=== PATIENT | female | born 1955 | race American Indian/Alaskan Native ===

== ENCOUNTER 2017-10-14 22:38 | Emergency (ER) | payer OTHER ==
[2017-10-14 23:35] LABS: Basophils % (Auto) 0.3 % (0.0-1.8); Hemoglobin 13.4 gm/dl (10.1-14.3); Lymphocytes # (Auto) 1.3 K/mm3 (1.2-5.4); Lymphocytes % (Auto) 8.5 % (13.4-35.0); Mean Corpuscular HGB Conc 34 % (30-34); Mean Corpuscular Hemoglobin 30 pg (28-32); Mean Corpuscular Volume 88 fl (79-97); Monocytes # (Auto) 0.8 K/mm3 (0.0-0.8); Monocytes % (Auto) 5.4 % (0.0-7.3); Platelet Count 295 K/mm3 (140-440); Red Blood Count 4.54 M/mm3 (3.65-5.03); Red Cell Distribution Width 13.9 % (13.2-15.2)
[2017-10-15 00:11] LABS: Alanine Aminotransferase 15 units/L (7-56); Albumin 3.6 g/dL (3.9-5); BUN/Creatinine Ratio 9; Blood Urea Nitrogen 10 mg/dL (7-17); Hemolysis Index 15
[2017-10-15 02:55] LABS: Bacteria,Urine 1+ /HPF (Negative); Bilirubin,Urine NEG (Negative); Blood,Urine NEG (Negative); Color,Urine Yellow (Yellow); Mucus,Urine FEW /HPF; Protein,Urine <15 mg/dL mg/dL (Negative); Urobilinogen,Urine < 2.0 mg/dL (<2.0)
[2017-10-15] MEDS ORDERED: SUBLIMAZE IV ONE (03:41)
--- NOTE | 2017-10-15 04:08 | XRay Report ---
FINAL REPORT EXAM: XR CHEST 1V AP HISTORY: chest pain TECHNIQUE: A portable semi-erect view the chest was obtained. FINDINGS: The heart size and mediastinum appear normal. The lungs are clear. The lungs are not congested. Pleural fluid is not seen. There are EKG leads overlying the chest wall. The bones and soft tissues reveal generalized obesity. IMPRESSION: No active chest disease.
--- NOTE | 2017-10-15 06:18 | Emergency Department Report ---
- General Chief complaint: Weakness Stated complaint: PAIN IN BACK AND BILATERAL LEGS Time Seen by Provider: 10/15/17 06:14 Source: patient Mode of arrival: Ambulatory Limitations: No Limitations - History of Present Illness Initial comments: Patient complains of generalized weakness, and aching generally, predominantly in arms, legs, and with headache, was noted to have a fever on arrival. Past medical history significant primarily for hypertension. She is hypertensive, but has no history of diabetes, although she is morbidly obese. Severity scale (0 -10): 0 - Related Data Previous Rx's Medication Instructions Recorded Last Taken Type HYDROcodone/ACETAMINOPHEN [[place] 1 each PO Q4-6H #15 tablet 10/15/17 Unknown Rx 5-325 Tablet] Levofloxacin [Levaquin TAB] 500 mg PO QDAY #9 tablet 10/15/17 Unknown Rx Ondansetron [Zofran ODT TAB] 8 mg PO Q8HR PRN #5 tab.rapdis 10/15/17 Unknown Rx Allergies Allergy/AdvReac Type Severity Reaction Status Date / Time ketoconazole AdvReac Unknown Verified 10/15/17 04:48 tetracycline AdvReac Unknown Verified 10/15/17 04:48 ED Review of Systems ROS: Stated complaint: PAIN IN BACK AND BILATERAL LEGS Other details as noted in HPI ED Past Medical Hx - Past Medical History Previous Medical History?: Yes Hx Hypertension: Yes - Surgical History Past Surgical History?: No - Social History Smoking Status: Never Smoker Substance Use Type: None - Medications Home Medications: Home Medications Medication Instructions Recorded Confirmed Last Taken Type HYDROcodone/ACETAMINOPHEN [[place] 1 each PO Q4-6H #15 tablet 10/15/17 Unknown Rx 5-325 Tablet] Levofloxacin [Levaquin TAB] 500 mg PO QDAY #9 tablet 10/15/17 Unknown Rx Ondansetron [Zofran ODT TAB] 8 mg PO Q8HR PRN #5 tab.rapdis 10/15/17 Unknown Rx ED Physical Exam - General Limitations: No Limitations General appearance: in no apparent distress, obese - Head Head exam: Present: atraumatic, normocephalic - Eye Eye exam: Present: normal appearance, PERRL - ENT ENT exam: Present: normal exam - Neck Neck exam: Present: normal inspection. Absent: tenderness - Respiratory Respiratory exam: Present: normal lung sounds bilaterally. Absent: wheezes, rhonchi - Cardiovascular Cardiovascular Exam: Present: tachycardia (103 on arrival, 92 on repeat examination, 102 on repeat examination) - GI/Abdominal GI/Abdominal exam: Present: soft. Absent: tenderness, guarding - Rectal Rectal exam: Present: deferred - Extremities Exam Extremities exam: Present: normal inspection. Absent: tenderness, joint swelling, calf tenderness - Back Exam Back exam: Present: normal inspection. Absent: tenderness, CVA tenderness (R), CVA tenderness (L) - Neurological Exam Neurological exam: Present: alert, CN II-XII intact. Absent: motor sensory deficit - Psychiatric Psychiatric exam: Present: normal affect - Skin Skin exam: Present: warm, dry. Absent: diaphoretic, petechiae, ecchymosis ED Course Vital Signs 10/14/17 10/15/17 10/15/17 22:51 03:32 04:41 Temperature 100 F H 97.8 F Pulse Rate 112 H 103 H Respiratory 16 31 H 26 H Rate Blood Pressure 150/90 Blood Pressure 146/89 [Right] O2 Sat by Pulse 97 98 96 Oximetry 10/15/17 10/15/17 08:19 10:00 Temperature 101.4 F H 100.6 F H Pulse Rate Respiratory Rate Blood Pressure Blood Pressure 152/87 [Right] O2 Sat by Pulse Oximetry - Reevaluation(s) Reevaluation #1: 10/15/17 10:20 Patient clinically stable, but repeat temperature was 101.4, patient medicated for fever, tolerated ceftriaxone, blood cultures and lactic acid were drawn, although blood cultures drawn after ceftriaxone administered, as fever recurred after initial plans for treatment of urinary tract infection. Reevaluation #2: 10/15/17 10:20 Patient remains clinically stable, lactic acid is stable although borderline at 2.0, the patient is tolerating fluids well, can be treated with oral levofloxacin, with close follow-up. She has ibuprofen she can take at home for fever, or can take Tylenol, and will be treated with daily levofloxacin, as well as medication for discomfort or nausea. 2-3 day follow-up with physician recommended. She is stable on repeat examination, but complains of persistent headache, which is bifrontal, does not radiate, and confirmed on local palpation in the bifrontal and temporal areas; she has no complaint of neck pain, and neck remained supple on examination. 10/15/17 10:43 Reevaluation #3: 10/15/17 13:09 Patient remains clinically stable, repeat lactate is decreased to 1.3, and patient is feeling better after treatment for headache, but patient remains febrile with temperature 100.6, and repeat shows mild persistent fever 99.5F. 10/15/17 13:12 ED Medical Decision Making - Lab Data Result diagrams: 10/14/17 23:01 10/14/17 23:01 - EKG Data -: EKG Interpreted by Me EKG shows normal: sinus rhythm, axis (normal QRS axis 24), QRS complexes ( normal QRS complexes without widening), ST-T waves (normal ST segments) Rate: tachycardia - Radiology Data Radiology results: report reviewed Chest x-ray shows no acute cardiopulmonary abnormality - Medical Decision Making Patient is clinically stable, although she is febrile, clear source is not evident, with negative x-ray, with mild elevation of white count, and borderline but stable lactic acid. She tolerates fluids, and is not allergic to levofloxacin, and will be treated as outpatient with close follow-up with physician. Initial dose of ceftriaxone given emergency Department, as well as first dose of oral levofloxacin. Repeat temperature at time of disposition 99.5 . Patient medicated for temperature, given hydrocodone for headache. Service criteria is negative, she is tolerating fluids and is stable for discharge. She will be discharged on same with early follow-up with her physician. - Differential Diagnosis pneumonia, sepsis, urinary tract infection, pyelonephritis Critical Care Time: No Critical care attestation.: If time is entered above; I have spent that time in minutes in the direct care of this critically ill patient, excluding procedure time. ED Disposition Clinical Impression: Urinary tract infection Qualifiers: Urinary tract infection type: site unspecified Fever Qualifiers: Encounter type: initial encounter Disposition: DC-01 TO HOME OR SELFCARE Is pt being admited?: No Does the pt Need Aspirin: No Condition: Stable Instructions: Urinary Tract Infection in Women (ED) Additional Instructions: Rest at home while feeling poorly, Be sure to check temperature rectally, and treat any fever with Tylenol or ibuprofen. We're prescribing hydrocodone for treatment of any persistent headache. Take Levaquin daily for urinary infection, beginning with next dose tomorrow morning. Take ondansetron if you have any nausea, and you can repeat this every 8 hours as needed for persistent nausea. Have recheck by your doctor on Wednesday or Wednesday, or return to the emergency department if you're feeling worse. Prescriptions: HYDROcodone/ACETAMINOPHEN [[place] 5-325 Tablet] 1 each PO Q4-6H #15 tablet Levofloxacin [Levaquin TAB] 500 mg PO QDAY #9 tablet Ondansetron [Zofran ODT TAB] 8 mg PO Q8HR PRN #5 tab.rapdis PRN Reason: Nausea Referrals: MARIO MAX MD [Primary Care Provider] - 3-5 Days Forms: Accompanied Note Time of Disposition: 13:18
[2017-10-15] MEDS ORDERED: ROCEPHIN IM ONE (07:27)
[2017-10-15] MEDS ORDERED: XYLOCAINE 1% MPF 5 mL INFILTRATI ONE (07:27)
[2017-10-15] MEDS ORDERED: ROCEPHIN/NS 1 GM/50 ML 1 GM/50 ML BAG IV ONE (07:28)
[2017-10-15] MEDS ORDERED: cefTRIAXone 1 GM in NACL 0.9% 20 ML IV ONE (07:45)
[2017-10-15 08:20] VITALS: BP 152/87
[2017-10-15] MEDS ORDERED: TYLENOL PO PRN (08:20)
[2017-10-15] MEDS ORDERED: TYLENOL ONE (08:22)
[2017-10-15] MEDS ORDERED: LEVAQUIN PO ONE (10:19)
[2017-10-15] MEDS ORDERED: NORCO 7.5/325 PO ONE (10:43)
== END 2017-10-15 13:53 | disposition home or self-care (01) ==
LOC: ED 22:38
DX: N39.0 Urinary tract infection, site not specified (principal); R50.9 Fever, unspecified; I10 Essential (primary) hypertension
CPT/HCPCS: 36415; 71045; 80053; 81001; 82140; 85025; 87040; 93005; 93010; 96372; 96374; 99284; J0696; J3010

== ENCOUNTER 2017-10-17 12:38 | Emergency (ER) | payer OTHER ==
[2017-10-17 13:13] LABS: Hematocrit 39.9 % (30.3-42.9); Hemoglobin 13.1 gm/dl (10.1-14.3); Mean Platelet Volume 7.5 fl (6-12); Red Blood Count 4.47 M/mm3 (3.65-5.03); Red Cell Distribution Width 14.2 % (13.2-15.2)
[2017-10-17 13:16] LABS: INR 0.97 (0.87-1.13)
--- NOTE | 2017-10-17 13:26 | Emergency Department Report ---
Chief Complaint: Extremity Injury, Lower Stated Complaint: LEG PAIN - HPI History of Present Illness: 62-year-old female past medical history right ankle surgery presents with complaint of one to 2 days of right ankle redness swelling and pain on skin. Skin is hot to touch without visible overlying redness near ankle and distal lui. She denies fevers or chills. Patient does state that she went on long distance car ride within the last 2 weeks which lasted for more than [address] Denies any personal history of PE or DVT. - ROS Review of Systems: 1 day of right lower extremity pain and swelling and redness overlying skin distal leg - Exam Vital Signs: Vital Signs 10/17/17 12:44 Temperature 98.8 F Pulse Rate 99 H Respiratory 18 Rate Blood Pressure 112/70 O2 Sat by Pulse 100 Oximetry Physical Exam: Visible erythema overlying skin right distal leg on the lateral aspect near malleolus and above it MSE screening note: Focused history and physical exam performed. Due to findings the following was ordered: Screening Assessment/Plan/Differential Dx: Right lower extremity cellulitis versus DVT 1- This initial assessment/diagnostic orders/clinical plan/ treatment(s) is/are subject to change based on pt's health status, clinical progression and re- assessment by fellow clinical providers in the ED. Further treatment and workup at subsequent clinical provers discretion. Patient/guardians urged not to elope from ED as their condition may be serious if not clinically assessed and managed. 2-labs, d-dimer is positive. I spoke with the avionics repair technician to obtain right lower extremity Doppler 3-x-ray right lower extremity ED Medical Decision Making - Lab Data Result diagrams: 10/17/17 12:53 ED Disposition for MSE Condition: Stable
[2017-10-17 13:52] LABS: BUN/Creatinine Ratio 14; Blood Urea Nitrogen 14 mg/dL (7-17); Calcium 9.1 mg/dL (8.4-10.2); Hemolysis Index 8
--- NOTE | 2017-10-17 14:03 | XRay Report ---
RIGHT ANKLE RADIOGRAPHS INDICATION: Right ankle pain and swelling. COMPARISON: 04/27/2016. FINDINGS: AP, lateral and oblique right ankle radiographs demonstrate stable intact articulation/mortise and distal fibular lateral cortical calcific thickening, possibly postinfectious or posttraumatic, amongst others. Extensive ankle soft tissue swelling noted, medial more than lateral, also possibly involving the imaged lower leg. Moderate to large dorsal and plantar calcaneal spurs. Dorsal midfoot spurring also noted. CONCLUSION: Extensive right ankle soft tissue swelling again noted with few other findings, as above. Please correlate. Thank you for the opportunity to participate in this patient's care.
[2017-10-17] MEDS ORDERED: TYLENOL PO ONE (17:11)
[2017-10-17] MEDS ORDERED: CLEOCIN PO ONE (17:11)
--- NOTE | 2017-10-17 17:14 | Emergency Department Report ---
- General Chief complaint: Extremity Injury, Lower Stated complaint: LEG PAIN Source: patient Mode of arrival: Ambulatory Limitations: No Limitations - History of Present Illness Initial comments: 62-year-old female past medical history peripheral vascular disease, osteoarthritis, hypertension, GERD, history of right distal ankle fracture with ORIF presents with complaint of 2 days of rash warm skin and somewhat painful skin right distal lower extremity. Patient denies any calf swelling or tenderness. Denies any direct trauma to the area. Patient is ambulatory. Denies fevers or chills. Awake alert and oriented 3. Visible erythematous region right lower lui region and lateral ankle region MD complaint: rash Onset/Timin -: days(s) Location: RLE Severity: moderate Severity scale (0 -10): 4 Quality: burning, aching Consistency: intermittent Worsens with: none Context: none Associated symptoms: denies other symptoms Treatments Prior to Arrival: none - Related Data Previous Rx's Medication Instructions Recorded Last Taken Type HYDROcodone/ACETAMINOPHEN [[place] 1 each PO Q4-6H #15 tablet 10/15/17 Unknown Rx 5-325 Tablet] Levofloxacin [Levaquin TAB] 500 mg PO QDAY #9 tablet 10/15/17 Unknown Rx Ondansetron [Zofran ODT TAB] 8 mg PO Q8HR PRN #5 tab.rapdis 10/15/17 Unknown Rx Acetaminophen [Tylenol Extra 500 mg PO Q8H PRN #25 tablet 10/17/17 Unknown Rx Strength] Clindamycin [Clindamycin CAP] 300 mg PO Q6H #28 capsule 10/17/17 Unknown Rx Allergies Allergy/AdvReac Type Severity Reaction Status Date / Time ketoconazole AdvReac Unknown Verified 10/15/17 04:48 tetracycline AdvReac Unknown Verified 10/15/17 04:48 Abscess Boil HPI - HPI Chief Complaint: Extremity Injury, Lower Stated Complaint: LEG PAIN Home Medications: Previous Rx's Medication Instructions Recorded Last Taken Type HYDROcodone/ACETAMINOPHEN [[place] 1 each PO Q4-6H #15 tablet 10/15/17 Unknown Rx 5-325 Tablet] Levofloxacin [Levaquin TAB] 500 mg PO QDAY #9 tablet 10/15/17 Unknown Rx Ondansetron [Zofran ODT TAB] 8 mg PO Q8HR PRN #5 tab.rapdis 10/15/17 Unknown Rx Acetaminophen [Tylenol Extra 500 mg PO Q8H PRN #25 tablet 10/17/17 Unknown Rx Strength] Clindamycin [Clindamycin CAP] 300 mg PO Q6H #28 capsule 10/17/17 Unknown Rx Allergies/Adverse Reactions: Allergies Allergy/AdvReac Type Severity Reaction Status Date / Time ketoconazole AdvReac Unknown Verified 10/15/17 04:48 tetracycline AdvReac Unknown Verified 10/15/17 04:48 ED Review of Systems ROS: Stated complaint: LEG PAIN Other details as noted in HPI Constitutional: denies: chills, fever Eyes: denies: eye pain, eye discharge, vision change ENT: denies: ear pain, throat pain Respiratory: denies: cough, shortness of breath, wheezing Cardiovascular: denies: chest pain, palpitations Endocrine: no symptoms reported Gastrointestinal: denies: abdominal pain, nausea, diarrhea Genitourinary: denies: urgency, dysuria, discharge Musculoskeletal: denies: back pain, joint swelling, arthralgia Skin: as per HPI, rash, change in color. denies: lesions Neurological: denies: headache, weakness, paresthesias Psychiatric: denies: anxiety, depression Hematological/Lymphatic: denies: easy bleeding, easy bruising ED Past Medical Hx - Past Medical History Hx Hypertension: Yes - Social History Smoking Status: Never Smoker Substance Use Type: None - Medications Home Medications: Home Medications Medication Instructions Recorded Confirmed Last Taken Type HYDROcodone/ACETAMINOPHEN [[place] 1 each PO Q4-6H #15 tablet 10/15/17 Unknown Rx 5-325 Tablet] Levofloxacin [Levaquin TAB] 500 mg PO QDAY #9 tablet 10/15/17 Unknown Rx Ondansetron [Zofran ODT TAB] 8 mg PO Q8HR PRN #5 tab.rapdis 10/15/17 Unknown Rx Acetaminophen [Tylenol Extra 500 mg PO Q8H PRN #25 tablet 10/17/17 Unknown Rx Strength] Clindamycin [Clindamycin CAP] 300 mg PO Q6H #28 capsule 10/17/17 Unknown Rx ED Physical Exam - General Limitations: No Limitations General appearance: alert, in no apparent distress - Head Head exam: Present: atraumatic, normocephalic - Eye Eye exam: Present: normal appearance - ENT ENT exam: Present: mucous membranes moist - Neck Neck exam: Present: normal inspection - Respiratory Respiratory exam: Present: normal lung sounds bilaterally. Absent: respiratory distress - Cardiovascular Cardiovascular Exam: Present: regular rate, normal rhythm. Absent: systolic murmur, diastolic murmur, rubs, gallop - GI/Abdominal GI/Abdominal exam: Present: soft, normal bowel sounds - Extremities Exam Extremities exam: Present: normal inspection - Expanded Lower Extremity Exam Right Upper Leg exam: Present: normal inspection, full ROM Knee exam: Present: normal inspection, full ROM Lower Leg exam: Present: full ROM, tenderness, erythema Ankle exam: Present: tenderness, erythema Foot/Toe exam: Present: normal inspection Neuro vascular tendon exam: Present: no vascular compromise (distal dorsalis pedis pulse strong to palpation) Gait: Positive: observed and normal - Back Exam Back exam: Present: normal inspection - Neurological Exam Neurological exam: Present: alert, oriented X3, CN II-XII intact, normal gait - Psychiatric Psychiatric exam: Present: normal affect, normal mood - Skin Skin exam: Present: warm, dry, intact, normal color. Absent: rash ED Course Vital Signs 10/17/17 12:44 Temperature 98.8 F Pulse Rate 99 H Respiratory 18 Rate Blood Pressure 112/70 O2 Sat by Pulse 100 Oximetry ED Medical Decision Making - Lab Data Result diagrams: 10/17/17 12:53 10/17/17 12:53 - Medical Decision Making A/P: Right lower extremity cellulitis 1-lower extremity Doppler shows no DVT 2-case discussed with attending. Will give patient trial of by mouth clindamycin. Borders of cellulitis marked 3-I advised patient to return to the ED for any development of fever chills inability to ambulate independently or rapid spread of cellulitis beyond marked borders. Patient stated she understood my instructions. 4-follow-up with primary care doctor 5- vital signs stable Critical care attestation.: If time is entered above; I have spent that time in minutes in the direct care of this critically ill patient, excluding procedure time. ED Disposition Clinical Impression: Cellulitis of right lower extremity Disposition: - TO HOME OR SELFCARE Is pt being admited?: No Does the pt Need Aspirin: No Condition: Stable Instructions: Cellulitis (ED) Additional Instructions: Please return to the ED for spread of redness beyond marked borders fevers or chills or inability to ambulate on your own Prescriptions: Acetaminophen [Tylenol Extra Strength] 500 mg PO Q8H PRN #25 tablet PRN Reason: Pain Clindamycin [Clindamycin CAP] 300 mg PO Q6H #28 capsule Referrals: [facility] [Provider Group] - 3-5 Days GERALD MAZARIEGOS MD [Staff Physician] - 3-5 Days Forms: Accompanied Note Time of Disposition: 17:13
[2017-10-17 17:38] VITALS: BP 161/102
--- NOTE | 2017-10-20 14:59 | Vascular Lab Report ---
Right Lower Extremity Venous Duplex Study: Reason for Exam: Pain and swelling of the right lower extremity. Comments on the Right: All veins visualized are freely compressible without evidence of internal echogenicity. Flow is spontaneous and phasic throughout. No evidence of acute or chronic thrombus is seen in any of the vessels visualized. Right inguinal adenopathy is noted. A soft tissue change in the right knee area is consistent with a Ya's cyst. There is veins are noted in the medial proximal calf. Comments on the Left: A limited duplex study was done of the proximal veins of the left lower extremity. All veins visualized are freely compressible without evidence of internal echogenicity. Flow is spontaneous and phasic throughout. No evidence of acute or chronic thrombus is seen in any of the vessels visualized. Impression: No evidence of acute or chronic deep venous thrombosis in the right lower extremity. Right inguinal adenopathy is noted. A soft tissue change in the right knee area is consistent with a Ya's cyst. Varicose veins are noted in the proximal right calf.
== END 2017-10-17 17:37 | disposition home or self-care (01) ==
LOC: ED 12:38
DX: L03.115 Cellulitis of right lower limb (principal); I10 Essential (primary) hypertension; Z88.1 Allergy status to other antibiotic agents; Z88.8 Allergy status to other drugs, medicaments and biological substances
CPT/HCPCS: 36415; 80048; 85027; 85379; 85610; 85730

== ENCOUNTER 2018-01-04 09:15 | Outpatient (CLI) | payer OTHER ==
--- NOTE | 2018-01-04 10:33 | Mammography Report ---
BILATERAL DIGITAL SCREENING MAMMOGRAM with CAD: 01/04/18 09:15:00 CLINICAL: Routine screening. COMPARISON:11/18/15 and 09/19/14 and 08/09/13 FINDINGS: The breasts are mostly fatty. 2 right focal asymmetries or new compared to prior mammograms and required additional imaging.No architectural distortion or suspicious calcifications.The left breast is negative. IMPRESSION: Right asymmetries requiring further workup. BI-RADS CATEGORY: 0 -- Additional Imaging Evaluation Required RECOMMENDATION: Recall for right mediolateral and spot magnification MLO and CC views and right breast ultrasound. ACR BI-RADS MAMMOGRAPHIC CODES: 0 = Needs additional imaging evaluation; 1 = Negative; 2 = Benign; 3 = Probably benign; 4 = Suspicious; 5 = Malignant; 6 = Known biopsy-proven malignancy COMMENT: 1. Dense breast tissue, i.e., adenosis, fibrocystic changes, etc., may obscure an underlying neoplasm. 2. Approximately 10% of cancers are not detected with mammography. 3. A negative mammography report should not delay biopsy if a clinically suspicious mass is present. COMMENT: Patient follow-up letters are generated via our [employer] application.
== END 2018-01-04 09:16 | disposition home or self-care (01) ==
LOC: MAMMO 09:15
PROVIDERS: ATTEND Internal Medicine
DX: Z12.31 Encounter for screening mammogram for malignant neoplasm of breast (principal)
CPT/HCPCS: 77067

== ENCOUNTER 2018-01-14 13:18 | Outpatient (CLI) | payer OTHER ==
--- NOTE | 2018-01-14 16:28 | Mammography Report ---
RIGHT DIGITAL DIAGNOSTIC MAMMOGRAM and RIGHT BREAST ULTRASOUND: 01/14/18 13:18:00 CLINICAL: Recalled for asymmetries. COMPARISON:01/04/18 screening FINDINGS: ML and spot magnification MLO and CC views were performed and demonstrate persistent low density circumscribed densities. Ultrasound of the retroareolar and outer right breast was performedand demonstrated no solid mass or shadowing. A retroareolar complex cyst at 12 o'clock measures 8 x 5 x 10 mm and correlates with the mammographic density. A cyst at 5:30 o'clock 3 cm from the nipple measures 6 mm and correlates with a benign calcified oil cysts on the mammogram. A cyst at 9 o'clock 5 cm from the nipple measures 6 x 2 x 4 mm and correlates with the more posterior mammographic density designated by arrows on the screening exam. A few benign right axillary tail benign lymph nodes. IMPRESSION: Benign cysts and lymph nodes. BI-RADS CATEGORY: 2 - - Benign RECOMMENDATION: Routine mammographic screening in one year. ACR BI-RADS MAMMOGRAPHIC CODES: 0 = Needs additional imaging evaluation; 1 = Negative; 2 = Benign; 3 = Probably benign; 4 = Suspicious; 5 = Malignant; 6 = Known biopsy-proven malignancy COMMENT: 1. Dense breast tissue, i.e., adenosis, fibrocystic changes, etc., may obscure an underlying neoplasm. 2. Approximately 10% of cancers are not detected with mammography. 3. A negative mammography report should not delay biopsy if a clinically suspicious mass is present. COMMENT: Patient follow-up letters are generated via our [facility] application.
== END 2018-01-14 13:19 | disposition home or self-care (01) ==
LOC: MAMMO 13:18
PROVIDERS: ATTEND Internal Medicine
DX: N60.01 Solitary cyst of right breast (principal); I10 Essential (primary) hypertension; Z88.8 Allergy status to other drugs, medicaments and biological substances; Z88.1 Allergy status to other antibiotic agents